=== PATIENT | female | born 1950 | race American Indian/Alaskan Native ===

== ENCOUNTER 2020-10-10 08:00 | Outpatient (CLI) | payer OTHER ==
[~2020-10-10 08:00] MED LIST: AVALIDE 300-12.1 TAB; CARDIZEM120 MG; COREG CR10 MG; LATANOPROST; NEURONTIN250 MG/5 M; PLAVIX75 MG; PLETAL50 MG; ZANTAC150 M1; [UNRECOGNIZED DRUG - CODE]
== END 2020-10-10 08:30 | disposition home or self-care (01) ==
LOC: PPH VACUNA 08:00
DX: Z23 Encounter for immunization (principal)

== ENCOUNTER 2022-09-22 08:25 | Outpatient (CLI) | payer OTHER | END 2022-09-22 08:34 | disposition home or self-care (01) | LOC: TOM 08:25 | PROVIDERS: ATTEND Internal Medicine Gastroenterology | DX: Z12.11 Encounter for screening for malignant neoplasm of colon (principal); R19.5 Other fecal abnormalities ==

== ENCOUNTER 2024-03-01 12:24 | Emergency (ER) | payer OTHER ==
[~2024-03-01] VITALS: Ht 157.5 cm; Wt 77.6 kg
[2024-03-01] MEDS ORDERED: SYNTHROID50 MCG (13:13)
[2024-03-01] MEDS ORDERED: ANASTROZOLE1 MG (13:13)
[2024-03-01] MEDS ORDERED: KETOROLAC TROMETHAMINE 60 MG VIAL IM STA (13:45)
[2024-03-01] MEDS ORDERED: DEXAMETHASONE SODIUM PHOSPHATE 4 MG/ML VIAL IM STA (13:45)
[2024-03-01] MEDS ORDERED: KETOROLAC TROMETHAMINE 60 MG VIAL IM ONE (13:49)
[2024-03-01] MEDS ORDERED: DEXAMETHASONE SODIUM PHOSPHATE 4 MG/ML VIAL ONE (13:49)
[2024-03-01] MEDS ORDERED: DICLOFENAC POTA50 MG PO (15:52)
[2024-03-01] MEDS ORDERED: MEDROLPACK PO (15:52)
== END 2024-03-01 16:10 | disposition home or self-care (01) ==
LOC: ER 12:27
DX: M25.561 Pain in right knee (principal); I10 Essential (primary) hypertension; Z88.6 Allergy status to analgesic agent
CPT/HCPCS: 73560; 96372; 99283; J1100; J1885